=== PATIENT | female | born 1985 | race American Indian/Alaskan Native ===

== ENCOUNTER 2019-03-14 18:42 | Emergency (ER) | payer SELFPAY ==
[2019-03-14 18:48] VITALS: BP 112/75
--- NOTE | 2019-03-14 18:49 | Emergency Department Report ---
Blank Doc - Documentation Documentation: pt presents for right swollen knee that began a week ago no fall or injury never injured before states she has chest pain that started today describes the pain as sharp no SOB no V/D + smoker LNMP: March 02 PMHx PCOS, psychogenic seizure, prediabetes
[2019-03-14 19:22] LABS: Basophils # (Auto) 0.1 K/mm3 (0.0-0.1); Basophils % (Auto) 0.9 % (0.0-1.8); Eosinophils # (Auto) 0.2 K/mm3 (0.0-0.4); Eosinophils % (Auto) 2.3 % (0.0-4.3); Hematocrit 40.8 % (30.3-42.9); Hemoglobin 13.8 gm/dl (10.1-14.3); Lymphocytes # (Auto) 2.8 K/mm3 (1.2-5.4); Lymphocytes % (Auto) 35.4 % (13.4-35.0); Mean Corpuscular HGB Conc 34 % (30-34); Mean Corpuscular Volume 90 fl (79-97); Monocytes # (Auto) 0.3 K/mm3 (0.0-0.8); Monocytes % (Auto) 4.4 % (0.0-7.3); Red Blood Count 4.52 M/mm3 (3.65-5.03); Red Cell Distribution Width 13.6 % (13.2-15.2)
[2019-03-14 19:29] LABS: Platelet Count 204 K/mm3 (140-440)
[2019-03-14 19:55] LABS: BUN/Creatinine Ratio 8; Blood Urea Nitrogen 6 mg/dL (7-17); Calcium 8.6 mg/dL (8.4-10.2); Hemolysis Index 73
[2019-03-14] MEDS ORDERED: TYLENOL PO ONE (20:01)
[2019-03-14] MEDS ORDERED: TYLENOL ONE (20:01)
[2019-03-14] MEDS ORDERED: IBUPROFEN PO ONE (21:31)
--- NOTE | 2019-03-14 21:35 | XRay Report ---
PROCEDURE: XR KNEE 3V RT TECHNIQUE: Right knee, 3 views HISTORY: right knee edema COMPARISONS: None available FINDINGS: There is medial joint space narrowing and osteophyte formation. No acute fracture or dislocation is s een. No joint effusion. Subcentimeter ovoid sclerotic lesion in the proximal tibial shaft is likely a bone island. IMPRESSION: Mild osteoarthritis. No acute osseous abnormality is seen. This document is electronically signed by Yessenia King MD., March 14 2019 09:34:19 PM ET
--- NOTE | 2019-03-14 21:36 | XRay Report ---
PROCEDURE: XR CHEST ROUTINE 2V TECHNIQUE: PA and lateral chest radiographs were obtained. HISTORY: CP COMPARISONS: None. FINDINGS: Heart: Normal. Mediastinum/Vessels: Normal. Lungs/Pleural space: Normal. Bony thorax: No acute osseous abnormality. IMPRESSION: No acute cardiopulmonary process seen.. This document is electronically signed by Heather Sagastume MD., March 14 2019 09:34:37 PM ET
[2019-03-14 21:55] LABS: INR 0.93 (0.87-1.13)
[2019-03-14 21:56] LABS: Partial Thromboplastin Time 41.1 Sec. (24.2-36.6)
--- NOTE | 2019-03-14 22:38 | Emergency Department Report ---
ED Chest Pain HPI - General Chief Complaint: Chest Pain Stated Complaint: KNEE/CHEST PAIN Time Seen by Provider: 03/14/19 18:45 Source: patient Mode of arrival: Ambulatory Limitations: No Limitations - History of Present Illness Initial Comments: This is a 33-year-old female nontoxic, well nourished in appearance, no acute signs of distress presents to the ED with c/o of right sided chest pain and right knee pain. Patient denies any radiation of pain. Patient deneis any injury to her knee. Patient describes pain as aching intermittently and worse lashay with movement and palpation. Patient denies any upper respiratory symptoms. Patient denies any shortness of breath, hemoptysis, fever, chills, nausea, vomiting, headache, stiff neck, numbness, tingling, abdominal pain. Patient denies pleuritic chest pain. Patient denies any recent travels or long car rides. Patient denies any recent surgeries or any sick contacts. Patient denies any drug allergies. Patient denies any significant PMH. MD Complaint: chest pain -: days(s) (1) Pain Location: right chest Pain Radiation: none Severity: mild Severity scale (0 -10): 3 Quality: aching Consistency: intermittent Improves With: rest Worsens With: palpation, movement re: denies: nausea, vomting, dyspnea, sense of impending doom Other Symptoms: denies: cough, fever, syncope, rash, acid taste in mouth, leg swelling, palpitations, burping Treatments Prior to Arrival: none Aspirin use within the Past 7 Days: (0) No - Related Data Previous Rx's Medication Instructions Recorded Last Taken Type Acetaminophen/Codeine [Tylenol 1 tab PO Q6H PRN #12 tab 03/14/19 Unknown Rx /Codeine # 3 tab] Naproxen [Naprosyn TAB] 500 mg PO BID PRN #20 tablet 03/14/19 Unknown Rx Allergies Allergy/AdvReac Type Severity Reaction Status Date / Time No Known Allergies Allergy Verified 03/14/19 18:44 Heart Score - HEART Score History: Slightly suspicious EKG: Normal Age: < 45 Risk factors: No known risk factors Troponin: < normal limit HEART Score: 0 ED Review of Systems ROS: Stated complaint: KNEE/CHEST PAIN Other details as noted in HPI Constitutional: denies: chills, fever Eyes: denies: eye pain, eye discharge, vision change ENT: denies: ear pain, throat pain Respiratory: denies: cough, shortness of breath, wheezing Cardiovascular: chest pain. denies: palpitations Endocrine: no symptoms reported Gastrointestinal: denies: abdominal pain, nausea, diarrhea Genitourinary: denies: urgency, dysuria, discharge Musculoskeletal: arthralgia. denies: back pain, joint swelling Skin: denies: rash, lesions Neurological: denies: headache, weakness, paresthesias Psychiatric: denies: anxiety, depression Hematological/Lymphatic: denies: easy bleeding, easy bruising ED Past Medical Hx - Past Medical History Hx Seizures: Yes Additional medical history: polycystic ovarian syndrome - Surgical History Additional Surgical History: tonsilectomy, right oophorectomy - Social History Smoking Status: Current Every Day Smoker Substance Use Type: None - Medications Home Medications: Home Medications Medication Instructions Recorded Confirmed Last Taken Type Acetaminophen/Codeine [Tylenol 1 tab PO Q6H PRN #12 tab 03/14/19 Unknown Rx /Codeine # 3 tab] Naproxen [Naprosyn TAB] 500 mg PO BID PRN #20 tablet 03/14/19 Unknown Rx ED Physical Exam - General Limitations: No Limitations General appearance: alert, in no apparent distress - Head Head exam: Present: atraumatic, normocephalic - Eye Eye exam: Present: normal appearance - Neck Neck exam: Present: normal inspection, full ROM. Absent: tenderness, meningismus, lymphadenopathy - Respiratory Respiratory exam: Present: normal lung sounds bilaterally, chest wall tenderness (right sided). Absent: respiratory distress, wheezes, rales, rhonchi, stridor, accessory muscle use, decreased breath sounds, prolonged expiratory - Cardiovascular Cardiovascular Exam: Present: regular rate, normal rhythm, normal heart sounds. Absent: bradycardia, tachycardia, irregular rhythm, systolic murmur, diastolic murmur, rubs, gallop - Extremities Exam Extremities exam: Present: normal inspection, full ROM, tenderness, normal capillary refill. Absent: joint swelling, calf tenderness - Expanded Lower Extremity Exam Right Hip exam: Present: normal inspection, full ROM. Absent: tenderness, swelling Upper Leg exam: Present: normal inspection, full ROM. Absent: tenderness, swelling Knee exam: Present: normal inspection, full ROM, tenderness, full knee extension. Absent: swelling, abrasion, laceration, ecchymosis, deformity, crepidus, dislocation, erythema, effusion, pain w/ pronation/supination, posterior draw sign, pain/laxity with valgus, pain/laxity with varus Lower Leg exam: Present: normal inspection, full ROM. Absent: tenderness Ankle exam: Present: normal inspection, full ROM. Absent: tenderness Foot/Toe exam: Present: normal inspection, full ROM. Absent: tenderness Neuro vascular tendon exam: Present: no vascular compromise Gait: Positive: observed and limited by pain - Back Exam Back exam: Present: normal inspection, full ROM. Absent: tenderness, CVA tenderness (R), CVA tenderness (L), muscle spasm, paraspinal tenderness, vertebral tenderness, rash noted - Neurological Exam Neurological exam: Present: alert, oriented X3, normal gait - Psychiatric Psychiatric exam: Present: normal affect, normal mood - Skin Skin exam: Present: warm, dry, intact, normal color. Absent: rash ED Course Vital Signs 03/14/19 03/14/19 18:45 20:01 Temperature 98.5 F Pulse Rate 73 Respiratory 16 18 Rate Blood Pressure 112/75 O2 Sat by Pulse 95 Oximetry - Reevaluation(s) Reevaluation #1: 03/14/19 22:38 Patient is speaking in full sentences with no signs of distress noted. LUPILLO score - Lupillo Score Age > 65: (0) No Aspirin use within the Past 7 Days: (0) No 3 or more CAD Risk Factors: (0) No 2 or more Angina events in past 24 hrs: (0) No Known CAD with more than 50% Stenosis: (0) No Elevated Cardiac Markers: (0) No ST Deviation Greater than 0.5mm: (0) No LUPILLO Score: 0 ED Medical Decision Making - Lab Data Result diagrams: 03/14/19 19:06 03/14/19 19:06 - Medical Decision Making This is a 33-year-old female that presents with Costochondritis and right knee strain. Patient is stable and was examined by me. LUPILLO and HEART score 0 pints. Wells criteria for DVT/SVT/PE 0 points. Negative d-dimmer. Xray of knee obtained and unremarkable and dictated by the radiologist. Patient does have normal gait with no tenderness and no joint swelling. No ecchymosis. no joint redness or swelling. Not warm to touch. No signs of cellulites present. Patient received a knee immobilize. Patient was instructed to RICE therapy. EKG normal sinus rhythm with no significant changes in ST. Chest xray dictated by the radiologist. PAtient is notified of the Xray reports with no questions noted. Labs within normal limits. Negative troponin x2. Patient received Motrin in the ED which she stated his symptoms are improving subsided. I will discharge patient with Flexeril and Motrin. Patient was instructed to Follow-up with a primary care/cigarette roller doctor in 2-3 days or if symptoms worsen and continue return to emergency room as soon as possible. At time of discharge, the patient does not seem toxic or ill in appearance. No acute signs of distress noted. Patient agrees to discharge treatment plan of care. No further questions noted by the patient. Critical care attestation.: If time is entered above; I have spent that time in minutes in the direct care of this critically ill patient, excluding procedure time. ED Disposition Clinical Impression: Costochondritis Strain of right knee Qualifiers: Encounter type: initial encounter Qualified Code(s): S86.911A - Strain of unspecified muscle(s) and tendon(s) at lower leg level, right leg, initial encounter Disposition: - TO HOME OR SELFCARE Is pt being admited?: No Does the pt Need Aspirin: No Condition: Stable Instructions: Costochondritis (ED), Knee Pain (ED), Knee Immobilizer (ED), RICE Therapy (ED) Additional Instructions: Follow-up with a primary care/cigarette roller/orthopedic doctor in 2-3 days or if symptoms worsen and continue return to emergency room as soon as possible. Prescriptions: Naproxen [Naprosyn TAB] 500 mg PO BID PRN #20 tablet PRN Reason: Pain , Severe (7-10) Acetaminophen/Codeine [Tylenol /Codeine # 3 tab] 1 tab PO Q6H PRN #12 tab PRN Reason: Pain , Severe (7-10) Referrals: GOPAL YEPEZ MD [Primary Care Provider] - 3-5 Days PRIMARY MD AH [Referring] - 3-5 Days MANDA SAUCEDO MD [Staff Physician] - 3-5 Days KAYLA DOWNEY MD [Staff Physician] - 3-5 Days MELISSA BOLDEN MD [Staff Physician] - 3-5 Days [facility] - [facility]-5 Days Forms: Work/School Release Form(ED)
== END 2019-03-14 23:00 | disposition home or self-care (01) ==
LOC: ED 18:42
DX: S86.911A Strain of unspecified muscle(s) and tendon(s) at lower leg level, right leg, initial encounter (principal); M94.0 Chondrocostal junction syndrome [Tietze]; F17.200 Nicotine dependence, unspecified, uncomplicated; Z90.79 Acquired absence of other genital organ(s); Z90.89 Acquired absence of other organs; X58.XXXA Exposure to other specified factors, initial encounter; Y93.89 Activity, other specified; Y92.89 Other specified places as the place of occurrence of the external cause; Y99.8 Other external cause status
CPT/HCPCS: 36415; 71046; 80048; 84484; 84702; 85025; 85610; 85730; 93005; 93010

== ENCOUNTER 2019-09-05 01:09 | Emergency (ER) | payer SELFPAY ==
--- NOTE | 2019-09-05 01:33 | Emergency Department Report ---
ED Psych HPI - General Stated Complaint: MH/SUICIDAL IDEATIONS Time Seen by Provider: 09/05/19 01:20 - History of Present Illness Initial Comments: Patient is 33 years old female with history of depression. Patient without emergency room via police clerk after patient was found trying to cut herself. Patient found by a bystander. Patient friend is in the room with her. She stated that she has been depressed for the last few weeks but yesterday she had an argument with her and she has been staying with her. 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 Patient has new abrasion to left breast. Patient admitted that she was trying to kill herself. Patient denied any homicidal ideation. No visual or auditory hallucination. MD Complaint: suicidal ideation, feels depressed -: week(s) Associated Psychiatric Symptoms: depression, suicidal ideation History of same: Yes Quality: constant Associated Symptoms: denies other symptoms If Self Harm: admits thoughts of, has acted on plan, self-inflicted trauma - Related Data Previous Rx's Medication Instructions Recorded Last Taken Type Acetaminophen/Codeine [Tylenol 1 tab PO Q6H PRN #12 tab 03/14/19 Unknown Rx /Codeine # 3 tab] Naproxen [Naprosyn TAB] 500 mg PO BID PRN #20 tablet 03/14/19 Unknown Rx Allergies Allergy/AdvReac Type Severity Reaction Status Date / Time No Known Allergies Allergy Verified 03/14/19 18:44 ED Review of Systems ROS: Stated complaint: MH/SUICIDAL IDEATIONS Other details as noted in HPI Comment: All other systems reviewed and negative Constitutional: denies: chills, fever Respiratory: denies: cough, shortness of breath Cardiovascular: denies: chest pain, palpitations Gastrointestinal: denies: abdominal pain, nausea, vomiting Musculoskeletal: denies: back pain Neurological: denies: headache, weakness Psychiatric: depression, suicidal thoughts. denies: auditory hallucinations, visual hallucinations, homicidal thoughts ED Past Medical Hx - Past Medical History Hx Seizures: Yes Additional medical history: polycystic ovarian syndrome - Surgical History Additional Surgical History: tonsilectomy, right oophorectomy - Social History Smoking Status: Current Every Day Smoker Substance Use Type: None - Medications Home Medications: Home Medications Medication Instructions Recorded Confirmed Last Taken Type Acetaminophen/Codeine [Tylenol 1 tab PO Q6H PRN #12 tab 03/14/19 Unknown Rx /Codeine # 3 tab] Naproxen [Naprosyn TAB] 500 mg PO BID PRN #20 tablet 03/14/19 Unknown Rx ED Physical Exam - General General appearance: alert, in no apparent distress - Head Head exam: Present: atraumatic, normocephalic, normal inspection - Eye Eye exam: Present: normal appearance - ENT ENT exam: Present: normal exam, normal orophraynx, mucous membranes moist - Neck Neck exam: Present: normal inspection, full ROM. Absent: tenderness, meningismus, lymphadenopathy, thyromegaly - Respiratory Respiratory exam: Present: normal lung sounds bilaterally - Cardiovascular Cardiovascular Exam: Present: regular rate, normal rhythm, normal heart sounds - GI/Abdominal GI/Abdominal exam: Present: soft, normal bowel sounds. Absent: distended, tenderness, guarding, rebound, rigid, organomegaly, mass, bruit, pulsatile mass, hernia - Extremities Exam Extremities exam: Present: normal inspection, full ROM, normal capillary refill. Absent: tenderness, pedal edema, calf tenderness - Back Exam Back exam: Present: normal inspection, full ROM. Absent: tenderness, CVA tenderness (R), CVA tenderness (L), muscle spasm, paraspinal tenderness - Neurological Exam Neurological exam: Present: alert, oriented X3, CN II-XII intact, normal gait, reflexes normal - Psychiatric Psychiatric exam: Present: depressed, suicidal ideation. Absent: agitated, anxious, flat affect, manic, homicidal ideation - Skin Skin exam: Present: warm, abrasion (left breast) ED Course Vital Signs 09/05/19 09/05/19 09/05/19 01:45 02:05 02:43 Temperature 98.9 F 98.9 F Pulse Rate 69 69 Respiratory 18 18 15 Rate Blood Pressure 136/76 Blood Pressure 136/76 136/76 [Right] O2 Sat by Pulse 99 99 Oximetry 09/05/19 09/05/19 09/05/19 03:43 06:45 21:17 Temperature 97.9 F Pulse Rate 64 63 Respiratory 18 18 16 Rate Blood Pressure Blood Pressure 118/67 125/73 [Right] O2 Sat by Pulse 98 100 Oximetry ED Medical Decision Making - Lab Data Result diagrams: 09/05/19 01:43 09/05/19 01:43 Critical care attestation.: If time is entered above; I have spent that time in minutes in the direct care of this critically ill patient, excluding procedure time. ED Disposition Clinical Impression: Suicidal ideation, Depression Disposition: [id number]/TX-[id number] PSY HOSP/PSY UNIT Is pt being admited?: No Condition: Stable Referrals: PRIMARY CARE, [Primary Care Provider] - 3-5 Days
[2019-09-05 02:10] LABS: Basophils % (Auto) 0.6 % (0.0-1.8); Eosinophils % (Auto) 0.4 % (0.0-4.3); Hematocrit 42.3 % (30.3-42.9); Hemoglobin 14.1 gm/dl (10.1-14.3); Lymphocytes # (Auto) 1.6 K/mm3 (1.2-5.4); Lymphocytes % (Auto) 21.1 % (13.4-35.0); Mean Corpuscular HGB Conc 33 % (30-34); Mean Corpuscular Volume 91 fl (79-97); Monocytes # (Auto) 0.5 K/mm3 (0.0-0.8); Platelet Count 203 K/mm3 (140-440); Red Blood Count 4.64 M/mm3 (3.65-5.03); Red Cell Distribution Width 13.3 % (13.2-15.2)
[2019-09-05 02:26] LABS: Alanine Aminotransferase 16 units/L (7-56); Albumin 4.6 g/dL (3.9-5); BUN/Creatinine Ratio 7; Blood Urea Nitrogen 7 mg/dL (7-17); Calcium 9.3 mg/dL (8.4-10.2); Hemolysis Index 11
[2019-09-05] MEDS ORDERED: ACETAMINOPHEN 500 MG TAB PO ONE (02:39)
[2019-09-05 03:54] LABS: Bilirubin,Urine NEG (Negative); Blood,Urine NEG (Negative); Color,Urine Yellow (Yellow); Mucus,Urine FEW /HPF
[2019-09-05 04:01] LABS: Amphetamine Screen,Urine PRESUMPTIVE NEGATIVE; Benzodiazepines Screen,Urine PRESUMPTIVE NEGATIVE; Cocaine Screen,Urine PRESUMPTIVE NEGATIVE; Methadone Screen,Urine PRESUMPTIVE NEGATIVE; Opiate Screen,Urine PRESUMPTIVE NEGATIVE
[2019-09-05 04:29] LABS: Cannabinoid Screen,Urine PRESUMPTIVE POSITIVE
[2019-09-05] MEDS ORDERED: ACETAMINOPHEN 325 MG TAB PO ONE (11:41)
[2019-09-05] MEDS ORDERED: ONDANSETRON 4 MG ODT TAB PO ONE (12:55)
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
[2019-09-05 21:30] VITALS: BP 125/73
[2019-09-06] MEDS ORDERED: SERTRALINE 50 MG TAB PO SCH (10:00)
== END 2019-09-05 21:28 ==
LOC: ED 01:09
DX: F32.9 Major depressive disorder, single episode, unspecified (principal)
CPT/HCPCS: 36415; 80053; 80307; 80320; 81001; 84703; 85025; G0480; Q0162